=== PATIENT | female | born 1950 | race Hispanic/Latino ===

== ENCOUNTER 2023-04-01 09:50 | Inpatient (IN) | payer MEDICARE, OTHER ==
[~2023-04-01 09:50] MED LIST: Iopamidol-370 76% 500 ML MDV (1 ML CHARGE) ONE
[2023-04-01 10:27] LABS: INR-International Normal Ratio 2.1; Prothrombin Time 24.6 sec (12.0-14.7)
[2023-04-01 10:28] LABS: PTT 90.9 sec (22.9-36.1)
[2023-04-01] MEDS ORDERED: Tenecteplase 50 MG ONE (10:34)
[2023-04-01 10:42] LABS: #Basophils 0.1 thou/uL (0.0-0.2); #Eosinphils 0.3 thou/uL (0.0-0.7); #Neutrophils 3.8 thou/uL (1.40-6.50); %Basophils 1.4 % (0.0-1.0); %Lymphocytes 31.5 % (21.0-51.0); %Monocytes 12.8 % (0.0-10.0); Hematocrit 42.2 % (36.0-47.0); Hemoglobin 13.1 g/dL (12.0-16.0); Mean Corpuscular Hemoglobin 24.5 pg (27.0-31.0); Platelet Count 241 10x3/uL (130-400); RBC Distribution Width 23.3 % (11.5-14.5); Red Blood Cell (RBC) Count 5.34 mill/uL (4.20-5.40); White Blood Cell (WBC) Count 7.7 10x3/uL (4.8-10.8)
[2023-04-01 11:04] LABS: Amphetamine Not Detected (NotDetected); Barbiturates Screen Not Detected (NotDetected); Benzodiazepine Screen Not Detected (NotDetected); Cocaine Metabolite Screen Not Detected (NotDetected); Methadone Not Detected (NotDetected); Methamphetamine Not Detected (NotDetected); Opiate Screen Not Detected (NotDetected); Oxycodone Screen Not Detected (NotDetected); Phencyclidine (PCP) Not Detected (NotDetected); THC/Cannabinoid Screen Not Detected (NotDetected); Tricyclic Screen Detected (NotDetected)
[2023-04-01 11:05] LABS: Bacteria/HPF None Seen HPF (None Seen); Bilirubin Negative (Negative); Blood, Urine Negative (Negative); CAUTI Indications for Culture Alt mental st,lethar; Clarity Clear (Clear); Glucose, Urine (Dipstick) Normal (Negative); Ketone, Urine Negative (Negative); Leukocyte Negative Leu/uL (Negative); Nitrite Negative (Negative); Protein, Urine (Dipstick) 200 mg/dL (Neg-Trace); RBC/HPF 0-3 HPF (0-3); Specific Gravity, Urine 1.031 (1.002-1.036); Squamous Epithelial 0-3 HPF (0-3)
[2023-04-01 11:10] LABS: Troponin I 0.042 ng/mL (< 0.028)
[2023-04-01 11:11] LABS: Acetaminophen Less than 10 mcg/mL (10.0-30.0); Alcohol Less than 10.0 mg/dL (Less than 10); Salicylate Less than 8.0 mg/dL (15.0-30.0)
[2023-04-01 11:16] LABS: Urine Culture Reflex No No
[2023-04-01 11:19] LABS: Anisocytosis MODERATE=16-30 cells HPF (0-5); Burr Cells SLIGHT = 2-5 cells HPF (0-1); CellaVision Operator ID LAB.CMB; Elliptocytes SLIGHT = 2-5 cells HPF (0-1); Macrocytosis SLIGHT = 6-15 cells HPF (0-5); Microcytosis SLIGHT = 6-15 cells HPF (0-5); Platelet Adequacy Comment Platelets Normal; Polychromasia SLIGHT = 2-3 cells HPF (0-2); RBC Morphology 2
[2023-04-01 11:37] LABS: Actual Bicarbonate (HCO3v) 27.2 mEq/L (22-28); Base Excess 2.8 mEq/L (-2.0 to +3.0); Calcium, Ionized (venous) 1.05 mmol/L (1.16-1.32); Chloride (VBG) 99 mmol/L (98-106); Hematocrit-VBG 43 % (36.0-47.0); Hemoglobin (Hb) 14.7 g/dL (11.7-16.1); Sodium 138 mmol/L (133-146); pH (venous) 7.437 (7.32-7.43)
[2023-04-01 11:38] LABS: Potassium (VBG) 6.41 mmol/L (3.70-5.30)
[2023-04-01 12:04] LABS: ALT (SGPT) 21 U/L (8-55); AST (SGOT) 54 U/L (5-34); Albumin 3.3 g/dL (3.4-4.8); Alkaline Phosphatase 216 U/L (40-110); BUN (Urea Nitrogen) 16 mg/dL (9.8-20.1); Bilirubin, Total 1.4 mg/dL (0.2-1.2); Calc. Creatinine Clearance 0 mL/min (70-130); Calcium 9.2 mg/dL (7.8-10.44); Carbon Dioxide 26 mmol/L (23-31); Chloride 101 mmol/L (98-107); Estimated GFR 71; Globulin 3.9 g/dL (2.4-3.5); Glucose 111 mg/dL (83-110); Potassium 5.4 mmol/L (3.5-5.1); Protein, Total 7.2 g/dL (5.8-8.1); Sodium 136 mmol/L (136-145)
[2023-04-01] MEDS ORDERED: Ondansetron PF 4 MG/2 ML Vial IVP PRN (12:37)
[2023-04-01] MEDS ORDERED: Communication Order-Pharmacy FS SCH (12:37)
[2023-04-01] MEDS ORDERED: niCARdipine 25 MG in Sodium Chloride 0.9% 250 ML 250 ML IVPB PRN (12:37)
[2023-04-01] MEDS ORDERED: Acetaminophen 325 MG TAB PO PRN (12:37)
[2023-04-01] MEDS ORDERED: hydrALAZINE 20 MG/ML VIAL SLOW IVP PRN (12:37)
[2023-04-01] MEDS ORDERED: Labetalol HCl 100 MG/20 ML VIAL SLOW IVP PRN (12:37)
[2023-04-01 12:41] LABS: Anion Gap 14 mmol/L (10-20)
[2023-04-01] MEDS ORDERED: Dextrose 50% Abboject 50 ML SYRINGE SLOW IVP PRN (12:51)
[2023-04-01] MEDS ORDERED: Dextrose 5% in Water 1,000 ML IV PRN (12:51)
[2023-04-01] MEDS ORDERED: Glucagon 1 MG/ML KIT IM PRN (12:51)
[2023-04-01 13:31] VITALS: BMI 34.2
[2023-04-01] MEDS ORDERED: FLU VACC QS2023(65UP)/MF59C/PF 60 MCG/0.5 ML SYRINGE IM ONE (14:15)
[2023-04-01] MEDS: Sodium Chloride 0.9% 1,000 ML IV SCH ×2 (18:14→23:59)
[2023-04-01] MEDS ORDERED: Famotidine 20 MG TAB PO SCH (21:00)
[2023-04-01] MEDS ORDERED: Atorvastatin Calcium 40 MG TAB PO SCH (21:00)
[2023-04-01] MEDS ORDERED: levETIRAcetam 500 mg/5 ml Oral Solution PO SCH (21:00)
[2023-04-01] MEDS: lamoTRIgine 100 MG TAB PO SCH (21:29)
[2023-04-01] MEDS: DULoxetine 60 MG CAP PO SCH (21:29)
[2023-04-01] MEDS: Atorvastatin Calcium 40 MG TAB PO SCH (21:29)
[2023-04-01] MEDS: levETIRAcetam 500 MG/5 ML VIAL SLOW IVP SCH (21:29)
[2023-04-01] MEDS: Acetaminophen/Codeine 30-300mg Tablet PO PRN (23:58)
[2023-04-02] MEDS: Levothyroxine 150 MCG TAB PO SCH (05:29)
[2023-04-02] MEDS: levETIRAcetam 500 MG/5 ML VIAL SLOW IVP SCH (08:32)
[2023-04-02] MEDS: DULoxetine 30 MG CAP PO SCH (08:33)
[2023-04-02] MEDS: Pregabalin 50 MG CAP PO SCH ×2 (08:33→22:00)
[2023-04-02] MEDS: lamoTRIgine 100 MG TAB PO SCH ×2 (08:33→21:55)
[2023-04-02] MEDS: Empagliflozin 10 MG TAB PO SCH (08:33)
[2023-04-02] MEDS: Sodium Chloride 0.9% 1,000 ML IV SCH (08:34)
[2023-04-02 11:39] LABS: #Basophils 0.1 thou/uL (0.0-0.2); #Eosinphils 0.3 thou/uL (0.0-0.7); #Monocytes 0.9 thou/uL (0.11-0.59); #Neutrophils 5.1 thou/uL (1.40-6.50); %Basophils 1.2 % (0.0-1.0); %Eosinophils 3.6 % (0.0-10.0); %Lymphocytes 27.7 % (21.0-51.0); %Monocytes 9.6 % (0.0-10.0); %Neutrophils 57.4 % (42.0-75.0); Hematocrit 46.7 % (36.0-47.0); Mean Corpuscular Hemoglobin 24.4 pg (27.0-31.0); Mean Corpuscular Volume 81.5 fl (78.0-98.0); Mean Platelet Volume 11.6 fL (7.4-10.4); Platelet Count 253 10x3/uL (130-400); RBC Distribution Width 23.9 % (11.5-14.5); Red Blood Cell (RBC) Count 5.73 mill/uL (4.20-5.40); White Blood Cell (WBC) Count 8.9 10x3/uL (4.8-10.8)
[2023-04-02 12:11] LABS: ALT (SGPT) 21 U/L (8-55); AST (SGOT) 54 U/L (5-34); Albumin 3.3 g/dL (3.4-4.8); Alkaline Phosphatase 231 U/L (40-110); Anion Gap 18 mmol/L (10-20); BUN (Urea Nitrogen) 20 mg/dL (9.8-20.1); Bilirubin, Total 1.2 mg/dL (0.2-1.2); Calc. Creatinine Clearance 91 mL/min (70-130); Calcium 8.8 mg/dL (7.8-10.44); Carbon Dioxide 23 mmol/L (23-31); Chloride 103 mmol/L (98-107); Estimated GFR 72; Globulin 3.7 g/dL (2.4-3.5); Glucose 85 mg/dL (83-110); Potassium 4.9 mmol/L (3.5-5.1); Sodium 139 mmol/L (136-145)
[2023-04-02] MEDS ORDERED: Furosemide 20 MG/2 ML VIAL SLOW IVP SCH (12:30)
[2023-04-02 12:50] LABS: INR-International Normal Ratio 1.9; Prothrombin Time 22.7 sec (12.0-14.7)
[2023-04-02] MEDS: Acetaminophen/Codeine 30-300mg Tablet PO PRN (16:22)
[2023-04-02] MEDS: DULoxetine 60 MG CAP PO SCH (19:57)
[2023-04-02] MEDS: levETIRAcetam 500 MG TAB PO SCH (21:54)
[2023-04-02] MEDS: Atorvastatin Calcium 40 MG TAB PO SCH (21:55)
[2023-04-02] MEDS: Sacubitril 24MG/Valsartan 26 MG TAB PO SCH (21:55)
[2023-04-02] MEDS: HumaLOG 300 UNITS/3 ML VIAL SC PRN (22:26)
[2023-04-02] MEDS: diphenhydrAMINE 25 MG CAP PO PRN (23:24)
[2023-04-03] MEDS: HumaLOG 300 UNITS/3 ML VIAL SC PRN ×3 (01:24→16:43)
[2023-04-03] MEDS: Levothyroxine 150 MCG TAB PO SCH (05:40)
[2023-04-03 07:46] LABS: Troponin I 0.024 ng/mL (< 0.028)
[2023-04-03] MEDS: Acetaminophen/Codeine 30-300mg Tablet PO PRN (08:31)
[2023-04-03 09:15] LABS: Cardiac Risk 3.3 (Less than 4.5)
[2023-04-03] MEDS: levETIRAcetam 500 MG TAB PO SCH ×2 (09:18→20:58)
[2023-04-03] MEDS: Aspirin 81 mg Enteric Coated Tablet PO SCH (09:19)
[2023-04-03] MEDS: Fish Oil 1,000 MG CAP PO SCH (09:19)
[2023-04-03] MEDS: Empagliflozin 10 MG TAB PO SCH (09:19)
[2023-04-03] MEDS: Sacubitril 24MG/Valsartan 26 MG TAB PO SCH ×2 (09:19→20:59)
[2023-04-03] MEDS: lamoTRIgine 100 MG TAB PO SCH ×2 (09:26→20:58)
[2023-04-03] MEDS: DULoxetine 30 MG CAP PO SCH (09:26)
[2023-04-03] MEDS: Pregabalin 50 MG CAP PO SCH ×2 (11:28→20:58)
[2023-04-03 15:33] VITALS: BP 120/85
[2023-04-03] MEDS: Atorvastatin Calcium 40 MG TAB PO SCH (20:58)
[2023-04-03] MEDS: DULoxetine 60 MG CAP PO SCH (20:59)
[2023-04-03] MEDS: Apixaban 5 MG TAB PO SCH (20:59)
[2023-04-04] MEDS: Acetaminophen/Codeine 30-300mg Tablet PO PRN (04:20)
[2023-04-04] MEDS: Levothyroxine 150 MCG TAB PO SCH (05:12)
[2023-04-04] MEDS: diphenhydrAMINE 25 MG CAP PO PRN (05:12)
[2023-04-04] MEDS: Fish Oil 1,000 MG CAP PO SCH (08:30)
[2023-04-04] MEDS: Empagliflozin 10 MG TAB PO SCH (08:30)
[2023-04-04] MEDS: Aspirin 81 mg Enteric Coated Tablet PO SCH (08:30)
[2023-04-04] MEDS: Sacubitril 24MG/Valsartan 26 MG TAB PO SCH ×2 (08:30→20:26)
[2023-04-04] MEDS: levETIRAcetam 500 MG TAB PO SCH ×2 (08:30→20:25)
[2023-04-04] MEDS: Apixaban 5 MG TAB PO SCH ×2 (08:30→21:16)
[2023-04-04] MEDS: DULoxetine 30 MG CAP PO SCH (08:31)
[2023-04-04] MEDS: lamoTRIgine 100 MG TAB PO SCH ×2 (08:31→20:26)
[2023-04-04] MEDS: Pregabalin 50 MG CAP PO SCH ×2 (09:34→21:17)
[2023-04-04] MEDS: HumaLOG 300 UNITS/3 ML VIAL SC PRN ×2 (11:24→16:38)
[2023-04-04] MEDS: Atorvastatin Calcium 40 MG TAB PO SCH (20:24)
[2023-04-04] MEDS: DULoxetine 60 MG CAP PO SCH (20:26)
[2023-04-04 20:37] VITALS: TEMP 97.7
== END 2023-04-04 20:55 | DRG 62 ==
LOC: ERS 09:50 → CCU 12:12
PROVIDERS: ADMIT Internal Medicine; ATTEND Internal Medicine Critical Care Medicine
DX: I67.89 Other cerebrovascular disease (principal); G81.94 Hemiplegia, unspecified affecting left nondominant side; I48.20 Chronic atrial fibrillation, unspecified; I50.22 Chronic systolic (congestive) heart failure; J96.11 Chronic respiratory failure with hypoxia; I42.9 Cardiomyopathy, unspecified; I25.810 Atherosclerosis of coronary artery bypass graft(s) without angina pectoris; E87.5 Hyperkalemia; R29.710 NIHSS score 10; I11.0 Hypertensive heart disease with heart failure; I48.0 Paroxysmal atrial fibrillation; I65.22 Occlusion and stenosis of left carotid artery; G40.909 Epilepsy, unspecified, not intractable, without status epilepticus; R47.81 Slurred speech; E11.65 Type 2 diabetes mellitus with hyperglycemia; R29.810 Facial weakness; E03.9 Hypothyroidism, unspecified; R29.6 Repeated falls; E78.5 Hyperlipidemia, unspecified; S42.302D Unspecified fracture of shaft of humerus, left arm, subsequent encounter for fracture with routine healing; Z95.1 Presence of aortocoronary bypass graft; Z79.899 Other long term (current) drug therapy; Z79.4 Long term (current) use of insulin; Z85.038 Personal history of other malignant neoplasm of large intestine; Z85.3 Personal history of malignant neoplasm of breast; Z91.81 History of falling; Z99.81 Dependence on supplemental oxygen; Z90.10 Acquired absence of unspecified breast and nipple; Z90.49 Acquired absence of other specified parts of digestive tract; Z79.01 Long term (current) use of anticoagulants; Z91.148 Patient's other noncompliance with medication regimen for other reason; T45.1X5S Adverse effect of antineoplastic and immunosuppressive drugs, sequela; G62.9 Polyneuropathy, unspecified; Z92.3 Personal history of irradiation; Z92.21 Personal history of antineoplastic chemotherapy
CPT/HCPCS: 36415; 36416; 51702; 70450; 70496; 70498; 70551; 71045; 80053; 80061; 80306; 80307; 81001; 82805; 84484; 85025; 85610; 85730; 87086; 93005; 93306; 93880; 94760; 96361; 96374; 99292; J1815; J1940; J1953; J3101; J7050; Q9967

== ENCOUNTER 2023-05-13 03:50 | Inpatient (IN) | payer MEDICARE, OTHER ==
[2023-05-13] MEDS ORDERED: Calcium Chloride 1 GM/10 ML Abboject SYRINGE ONE ×2 (03:52→08:53)
[2023-05-13] MEDS ORDERED: Sodium Bicarb 50 MEQ/50 ML Abboject 8.4% SYRINGE ONE (03:52)
[2023-05-13] MEDS ORDERED: Amiodarone 150 MG/3 ML VIAL ONE (03:52)
[2023-05-13] MEDS ORDERED: EPINEPHrine 1 MG/10 ML Abboject SYRINGE ONE (03:52)
[2023-05-13] MEDS ORDERED: fentaNYL 50 mcg/mL 1 mL Vial ONE (04:28)
[2023-05-13 04:30] LABS: Actual Bicarbonate (HCO3a) 17.2 mEq/L (22-28); Analyzer IN Cardio ER; CO2 Tension 41.9 mmHg (35.0-45.0); Calcium, Ionized (arterial) 1.36 mmol/L (1.12-1.30); Carboxyhemoglobin (COHb) 1.3 gm% (0.0-3.0); Hematocrit-ABG 45 % (36.0-47.0); Hemoglobin (Hb) 15.3 g/dL (12.0-16.0); O2 Tension (PaO2), arterial 202.5 mmHg (> 70.0); Potassium - ABG Lab 4.13 mmol/L (3.70-5.30)
[2023-05-13 04:30] LABS: Hematocrit 50.2 % (36.0-47.0); Hemoglobin 14.9 g/dL (12.0-16.0); Manual Diff?? YES; Mean Corpuscular HGB CONC 29.7 g/dL (32.0-36.0); Mean Corpuscular Hemoglobin 24.9 pg (27.0-31.0); Mean Corpuscular Volume 83.8 fl (78.0-98.0); Platelet Count 214 10x3/uL (130-400); RBC Distribution Width 25.3 % (11.5-14.5); Red Blood Cell (RBC) Count 5.99 mill/uL (4.20-5.40); White Blood Cell (WBC) Count 27.7 10x3/uL (4.8-10.8)
[2023-05-13 04:31] LABS: INR-International Normal Ratio 2.3
[2023-05-13 04:32] LABS: PTT 47.3 sec (22.9-36.1)
[2023-05-13 04:33] LABS: Delete Auto Diff?? YES
[2023-05-13 04:39] LABS: Puncture Site RR
[2023-05-13 04:40] LABS: ALV-art Gradient 458.125 mmHg (0-20)
[2023-05-13 04:42] LABS: Troponin I 0.077 ng/mL (< 0.028)
[2023-05-13] MEDS ORDERED: Fentanyl CADD 100 ML IV SCH (04:45)
[2023-05-13 04:57] LABS: Anisocytosis SLIGHT = 6-15 cells HPF (0-5); Band 3 % (5-11); CellaVision Operator ID lab.abc; Eosinophils 1 % (0-10); Hypochromia SLIGHT = 6-15 cells HPF (0-5); Lymphocytes 51 % (21-51); Monocytes 5 % (0-10); Myelocyte 1 % (0-0); Neutrophil 24 % (42-75); Nucleated RBC (Manual Ct) 1 % (0); Platelet Adequacy Comment Platelets Normal; Polychromasia SLIGHT = 2-3 cells HPF (0-2); Reactive Lymphocytes 15 % (0-10); Target Cells SLIGHT = 2-5 cells HPF (0-1); Total Cell Count 100
[2023-05-13 05:01] LABS: ALT (SGPT) 291 U/L (8-55); AST (SGOT) 775 U/L (5-34); Alkaline Phosphatase 357 U/L (40-110); Anion Gap 29 mmol/L (10-20); BUN (Urea Nitrogen) 22 mg/dL (9.8-20.1); Bilirubin, Total 1.7 mg/dL (0.2-1.2); Calc. Creatinine Clearance 0 mL/min (70-130); Carbon Dioxide 18 mmol/L (23-31); Chloride 103 mmol/L (98-107); Estimated GFR 33; Globulin 3.5 g/dL (2.4-3.5); Glucose 82 mg/dL (83-110); Lipase 38 U/L (8-78); Magnesium 3.7 mg/dL (1.6-2.6); Potassium 4.6 mmol/L (3.5-5.1); Protein, Total 6.5 g/dL (5.8-8.1); Sodium 145 mmol/L (136-145)
[2023-05-13] MEDS ORDERED: NOREPINEPHRINE 8 MG/250 ML-D5W 250 ML ONE (05:06)
[2023-05-13] MEDS ORDERED: Acetaminophen 650 MG/20.3 ML UDCUP PER TUBE PRN (05:53)
[2023-05-13] MEDS ORDERED: Sodium Chloride 0.9% 1,000 ML IV SCH (06:00)
[2023-05-13] MEDS ORDERED: Ondansetron ODT 4 MG TAB SL PRN (06:00)
[2023-05-13] MEDS ORDERED: Ondansetron PF 4 MG/2 ML Vial IVP PRN (06:00)
[2023-05-13] MEDS ORDERED: Sodium Chloride 0.9% 100 ML ONE (06:29)
[2023-05-13] MEDS ORDERED: Cefepime 2 GM VIAL ONE (06:29)
[2023-05-13] MEDS ORDERED: Vancomycin 1 GM/200 ML (FROZEN) BAG ONE (06:29)
[2023-05-13] MEDS ORDERED: Acetaminophen 325 MG TAB PO PRN (06:42)
[2023-05-13] MEDS ORDERED: Ventilator Sedation Protocol 1 EACH FS SCH (06:45)
[2023-05-13] MEDS ORDERED: Amiodarone 450 MG, Admixture Fee 1 EACH in Dextrose 5% in Water 250 ML IVPB SCH (07:00)
[2023-05-13] MEDS ORDERED: Lorazepam 2 MG/ML VIAL SLOW IVP PRN (07:00)
[2023-05-13] MEDS ORDERED: DISCONTINUE PREVIOUS NARCOTIC PAIN MEDICATIONS AND BENZODIAZEPINES FS SCH (07:00)
[2023-05-13] MEDS ORDERED: Fentanyl BOLUS 250 ML IVPB PRN (07:00)
[2023-05-13] MEDS ORDERED: Morphine 2 MG/ML VIAL SLOW IVP PRN (07:00)
[2023-05-13] MEDS ORDERED: Propofol BOLUS 1,000 MG/100 ML VIAL IV PRN (07:00)
[2023-05-13] MEDS ORDERED: Propofol 1,000 MG/100 ML VIAL IV PRN (07:00)
[2023-05-13] MEDS ORDERED: HumaLOG 300 UNITS/3 ML VIAL SC PRN (07:09)
[2023-05-13] MEDS ORDERED: Glucagon 1 MG/ML KIT IM PRN (07:09)
[2023-05-13] MEDS ORDERED: Dextrose 50% Abboject 50 ML SYRINGE SLOW IVP PRN (07:09)
[2023-05-13] MEDS ORDERED: Dextrose 5% in Water 1,000 ML IV PRN (07:09)
[2023-05-13 08:14] LABS: Base Excess (BEa) -12.4 mEq/L (-2.0 to +3.0); Calcium, Ionized (arterial) 1.24 mmol/L (1.12-1.30); Carboxyhemoglobin (COHb) 1.7 gm% (0.0-3.0); Hematocrit-ABG 46 % (36.0-47.0); Hemoglobin (Hb) 15.6 g/dL (12.0-16.0); O2 Tension (PaO2), arterial 151.4 mmHg (> 70.0); pH, Arterial 7.253 (7.35-7.45)
[2023-05-13 08:15] LABS: Actual Bicarbonate (HCO3a) 13.4 mEq/L (22-28); Potassium - ABG Lab 6.29 mmol/L (3.70-5.30); Puncture Site RRA
[2023-05-13] MEDS ORDERED: Sodium Bicarb 50 MEQ/50 ML Abboject 8.4% SYRINGE IVP SCH (08:30)
[2023-05-13] MEDS ORDERED: Calcium Chloride 1 GM/10 ML Abboject SYRINGE IVP SCH (08:45)
[2023-05-13] MEDS ORDERED: Vasopressin 20 UNITS, Admixture Fee 1 EACH in Sodium Chloride 0.9% 50 ML IV SCH (08:45)
[2023-05-13] MEDS ORDERED: Sodium Bicarb 50 mEq/50 ML VIAL ONE ×2 (08:53→09:01)
[2023-05-13] MEDS ORDERED: Enoxaparin 40 MG (0.4 mL) SYRINGE SC SCH (09:00)
[2023-05-13] MEDS ORDERED: Famotidine/PF 20 mg/2ml Vial SLOW IVP SCH (09:00)
[2023-05-13] MEDS ORDERED: Dextrose 50% Abboject 50 ML SYRINGE ONE (09:04)
[2023-05-13 10:08] LABS: ALT (SGPT) 407 U/L (8-55); AST (SGOT) 1185 U/L (5-34); Albumin 2.8 g/dL (3.4-4.8); Alkaline Phosphatase 390 U/L (40-110); Anion Gap 34 mmol/L (10-20); BUN (Urea Nitrogen) 29 mg/dL (9.8-20.1); Bilirubin, Total 2.2 mg/dL (0.2-1.2); Calc. Creatinine Clearance 0 mL/min (70-130); Calcium 11.2 mg/dL (7.8-10.44); Carbon Dioxide 15 mmol/L (23-31); Chloride 99 mmol/L (98-107); Estimated GFR 27; Globulin 3.3 g/dL (2.4-3.5); Glucose 202 mg/dL (83-110); Potassium 5.8 mmol/L (3.5-5.1); Protein, Total 6.1 g/dL (5.8-8.1); Sodium 142 mmol/L (136-145)
[2023-05-13] MEDS ORDERED: Dextrose 50% Abboject 50 ML SYRINGE SLOW IVP SCH ×2 (10:15→13:45)
[2023-05-13] MEDS ORDERED: Vasopressin 20 UNITS in Sodium Chloride 0.9% 50 ML IV PRN (10:23)
[2023-05-13] MEDS ORDERED: Electrolyte Replacement Protocol 1 EACH IVPB ONE (10:23)
[2023-05-13] MEDS ORDERED: Electrolyte Replacement Protocol FS PRN (10:30)
[2023-05-13] MEDS ORDERED: LOKELMA 10 GM PACKET PO SCH (10:30)
[2023-05-13] MEDS ORDERED: Pantoprazole 80 MG, Admixture Fee 1 EACH in Sodium Chloride 0.9% 100 ML IVPB SCH (11:00)
[2023-05-13] MEDS: NOREPINEPHRINE 8 MG/250 ML-D5W 250 ML IVPB PRN ×3 (11:11→23:36)
[2023-05-13 11:20] VITALS: BMI 32.8
[2023-05-13 11:47] LABS: Platelet Count 367 10x3/uL (130-400)
[2023-05-13 12:26] LABS: Fibrinogen 506 mg/dL (253-463)
[2023-05-13 12:28] LABS: PTT 48.7 sec (22.9-36.1)
[2023-05-13 12:43] LABS: D-Dimer Test Greater than 20.00 *mcg/mL (0.27-0.43)
[2023-05-13] MEDS ORDERED: Albumin 25% 25 GM (100 mL) BOT IVPB SCH (12:45)
[2023-05-13 12:57] LABS: INR-International Normal Ratio 2.7; Prothrombin Time 29.1 sec (12.0-14.7)
[2023-05-13 13:25] LABS: Base Excess (BEa) -14.8 mEq/L (-2.0 to +3.0); CO2 Tension 27.3 mmHg (35.0-45.0); Calcium, Ionized (arterial) 1.24 mmol/L (1.12-1.30); Carboxyhemoglobin (COHb) 1.2 gm% (0.0-3.0); Hematocrit-ABG 46 % (36.0-47.0); Hemoglobin (Hb) 15.7 g/dL (12.0-16.0); O2 Tension (PaO2), arterial 315.3 mmHg (> 70.0); pH, Arterial 7.227 (7.35-7.45)
[2023-05-13] MEDS ORDERED: Sodium Bicarb 50 mEq/50 ML VIAL IVP SCH (13:45)
[2023-05-13] MEDS ORDERED: Insulin Regular 300 UNITS/3 ML VIAL IVP SCH (13:45)
[2023-05-13 13:59] LABS: Actual Bicarbonate (HCO3a) 11.1 mEq/L (22-28); Potassium - ABG Lab 6.42 mmol/L (3.70-5.30)
[2023-05-13 14:00] LABS: ALV-art Gradient 363.575 mmHg (0-20); Puncture Site ALINE
[2023-05-13] MEDS ORDERED: Vancomycin (BATCH) 2 GM in Premix 1 BAG IVPB SCH (14:00)
[2023-05-13] MEDS: Ipratropium/Albuterol 3 ML NEB NEB SCH ×3 (14:23→23:33)
[2023-05-13] MEDS: Sodium Bicarbonate 150 MEQ in Dextrose 5% in Water 1,000 ML IVP SCH ×2 (14:25→22:53)
[2023-05-13 14:41] LABS: Critical Call Chem Troponin I NUR.LEW1 @1440; Critical Call Chem-Lactate NUR.LEW1 @1440; Lactic Acid 17.1 mmol/L (0.5-2.2)
[2023-05-13 15:30] LABS: Hematocrit 45.9 % (36.0-47.0); Hemoglobin 13.6 g/dL (12.0-16.0); Manual Diff?? YES; Mean Corpuscular HGB CONC 29.6 g/dL (32.0-36.0); Mean Corpuscular Hemoglobin 25.1 pg (27.0-31.0); Mean Corpuscular Volume 84.8 fl (78.0-98.0); Mean Platelet Volume 11.2 fL (7.4-10.4); RBC Distribution Width 24.1 % (11.5-14.5); Red Blood Cell (RBC) Count 5.41 mill/uL (4.20-5.40); White Blood Cell (WBC) Count 31.6 10x3/uL (4.8-10.8)
[2023-05-13 15:32] LABS: Delete Auto Diff?? YES; Platelet Count 351 10x3/uL (130-400)
[2023-05-13 15:55] LABS: Anion Gap 36 mmol/L (10-20); BUN (Urea Nitrogen) 35 mg/dL (9.8-20.1); Calc. Creatinine Clearance 32 mL/min (70-130); Calcium 9.5 mg/dL (7.8-10.44); Carbon Dioxide 12 mmol/L (23-31); Chloride 100 mmol/L (98-107); Estimated GFR 22; Glucose 250 mg/dL (83-110); Potassium 5.7 mmol/L (3.5-5.1); Sodium 142 mmol/L (136-145)
[2023-05-13 16:11] LABS: Anisocytosis MARKED = >30 cells HPF (0-5); Band 7 % (5-11); Burr Cells SLIGHT = 2-5 cells HPF (0-1); CellaVision Operator ID lab.sh2; Dohle Bodies SLIGHT; Hypochromia SLIGHT = 6-15 cells HPF (0-5); Large Platelets 21.9 % (0-5); Lymphocytes 3 % (21-51); Macrocytosis MODERATE=16-30 cells HPF (0-5); Monocytes 5 % (0-10); Neutrophil 86 % (42-75); Ovalocytes SLIGHT = 2-5 cells HPF (0-1); Platelet Adequacy Comment Platelets Normal; Poikilocytosis SLIGHT = 6-15 cells HPF (0-5); Polychromasia MODERATE = 3-4 cells HPF (0-2); Smudge Cells 6.7 %; Target Cells SLIGHT = 2-5 cells HPF (0-1); Total Cell Count 105; Vacuoles SLIGHT
[2023-05-13] MEDS: HumaLOG 300 UNITS/3 ML VIAL SC PRN ×2 (16:23→23:44)
[2023-05-13] MEDS ORDERED: Vancomycin (BATCH) 1.25 GM in Premix 1 BAG IVPB SCH (18:00)
[2023-05-13] MEDS: Cefepime 1 GM in Sodium Chloride 0.9% 100 ML IVPB SCH (18:27)
[2023-05-13 20:03] LABS: Critical Call Chem-Lactate REHAB.JMB @2003; Lactic Acid 14.7 mmol/L (0.5-2.2)
[2023-05-13] MEDS: Pantoprazole 40 MG VIAL IVP SCH (20:23)
[2023-05-13] MEDS: Acetaminophen 650 MG Suppository PR PRN (20:28)
[2023-05-14] MEDS: Amiodarone 450 MG, Admixture Fee 1 EACH in Dextrose 5% in Water 250 ML IVPB SCH ×2 (00:22→16:42)
[2023-05-14 00:25] LABS: Critical Call Chem-Lactate REHAB.JMB@0024; Lactic Acid 14.5 mmol/L (0.5-2.2)
[2023-05-14 04:19] LABS: Hematocrit 42.7 % (36.0-47.0); Hemoglobin 13.6 g/dL (12.0-16.0); Manual Diff?? YES; Mean Corpuscular HGB CONC 31.9 g/dL (32.0-36.0); Mean Corpuscular Hemoglobin 25.2 pg (27.0-31.0); Mean Platelet Volume 11.4 fL (7.4-10.4); Platelet Count 354 10x3/uL (130-400); RBC Distribution Width 23.1 % (11.5-14.5); White Blood Cell (WBC) Count 25.3 10x3/uL (4.8-10.8)
[2023-05-14] MEDS: Acetaminophen 650 MG Suppository PR PRN ×2 (04:33→12:07)
[2023-05-14 04:43] LABS: ALT (SGPT) 809 U/L (8-55); AST (SGOT) 2343 U/L (5-34); Albumin 3.3 g/dL (3.4-4.8); Alkaline Phosphatase 348 U/L (40-110); Anion Gap 31 mmol/L (10-20); BUN (Urea Nitrogen) 45 mg/dL (9.8-20.1); Bilirubin, Total 2.3 mg/dL (0.2-1.2); Calc. Creatinine Clearance 22 mL/min (70-130); Calcium 8.5 mg/dL (7.8-10.44); Carbon Dioxide 18 mmol/L (23-31); Chloride 92 mmol/L (98-107); Estimated GFR 14; Globulin 3.3 g/dL (2.4-3.5); Protein, Total 6.6 g/dL (5.8-8.1); Sodium 135 mmol/L (136-145)
[2023-05-14 04:45] LABS: Glucose 448 mg/dL (83-110); Potassium 6.2 mmol/L (3.5-5.1)
[2023-05-14] MEDS: Cefepime 1 GM in Sodium Chloride 0.9% 100 ML IVPB SCH ×2 (05:08→18:43)
[2023-05-14] MEDS ORDERED: Sodium Bicarb 50 mEq/50 ML VIAL IVP SCH (05:15)
[2023-05-14] MEDS ORDERED: Insulin Regular 300 UNITS/3 ML VIAL IVP SCH (05:15)
[2023-05-14] MEDS: HumaLOG 300 UNITS/3 ML VIAL SC PRN ×4 (05:27→17:43)
[2023-05-14 05:55] LABS: Delete Auto Diff?? YES
[2023-05-14 05:56] LABS: Mean Corpuscular Volume 79.1 fl (78.0-98.0)
[2023-05-14] MEDS ORDERED: Sodium Polystyrene Sulfonate 15 GM (60 mL) BOT PER TUBE SCH (06:35)
[2023-05-14] MEDS: Ipratropium/Albuterol 3 ML NEB NEB SCH ×2 (06:42→12:47)
[2023-05-14 07:03] LABS: Anisocytosis SLIGHT = 6-15 cells HPF (0-5); Band 9 % (5-11); Burr Cells SLIGHT = 2-5 cells HPF (0-1); CellaVision Operator ID LAB.JMM; Elliptocytes SLIGHT = 2-5 cells HPF (0-1); Large Platelets 12.9 % (0-5); Lymphocytes 6 % (21-51); Macrocytosis SLIGHT = 6-15 cells HPF (0-5); Metamyelocyte 1 % (0-0); Monocytes 19 % (0-10); Neutrophil 62 % (42-75); Platelet Adequacy Comment Platelets Normal; Polychromasia MODERATE = 3-4 cells HPF (0-2); Reactive Lymphocytes 3 % (0-10); Smudge Cells 17.8 %; Total Cell Count 101
[2023-05-14 07:20] LABS: Actual Bicarbonate (HCO3a) 23.8 mEq/L (22-28); Base Excess (BEa) 1.5 mEq/L (-2.0 to +3.0); CO2 Tension 30.9 mmHg (35.0-45.0); Calcium, Ionized (arterial) 0.99 mmol/L (1.12-1.30); Hematocrit-ABG 41 % (36.0-47.0); Hemoglobin (Hb) 13.8 g/dL (12.0-16.0); O2 Tension (PaO2), arterial 134.9 mmHg (> 70.0); pH, Arterial 7.505 (7.35-7.45)
[2023-05-14] MEDS ORDERED: Vancomycin Dose by Levels Sliding Scale (Wt 71-99) FS SCH (07:45)
[2023-05-14 07:48] LABS: ALV-art Gradient 432.525 mmHg (0-20)
[2023-05-14 08:05] LABS: Bilirubin Negative (Negative); Blood, Urine 3+ (Negative); Clarity Turbid (Clear); Glucose, Urine (Dipstick) Greater than 1000 mg/dL (Negative); Ketone, Urine Negative (Negative); Leukocyte 75 Leu/uL (Negative); Nitrite Negative (Negative); Protein, Urine (Dipstick) 100 mg/dL (Neg-Trace); RBC/HPF Greater than 50 HPF (0-3); Specific Gravity, Urine 1.014 (1.002-1.036); Urobilinogen Normal mg/dL (Less than 2); WBC/HPF Greater than 50 HPF (0-3)
[2023-05-14] MEDS: Sodium Bicarbonate 150 MEQ in Dextrose 5% in Water 1,000 ML IVP SCH (08:28)
[2023-05-14 08:33] LABS: Bacteria/HPF 1+ HPF (None Seen)
[2023-05-14 09:23] LABS: Anion Gap 29 mmol/L (10-20); BUN (Urea Nitrogen) 52 mg/dL (9.8-20.1); Calc. Creatinine Clearance 22 mL/min (70-130); Calcium 8.2 mg/dL (7.8-10.44); Carbon Dioxide 25 mmol/L (23-31); Chloride 89 mmol/L (98-107); Estimated GFR 13; Potassium 5.4 mmol/L (3.5-5.1); Sodium 138 mmol/L (136-145)
[2023-05-14] MEDS: Pantoprazole 40 MG VIAL IVP SCH ×2 (09:28→20:28)
[2023-05-14 09:29] LABS: Critical Call Chemistry NUR.CLW1@0930; Glucose 471 mg/dL (83-110); Lactic Acid 11.5 mmol/L (0.5-2.2)
[2023-05-14 10:15] VITALS: BP 113/48
[2023-05-14 10:39] LABS: Vancomycin, Random 28.1 ug/mL (See Comment)
[2023-05-14] MEDS: NOREPINEPHRINE 8 MG/250 ML-D5W 250 ML IVPB PRN (10:45)
[2023-05-14 20:09] VITALS: TEMP 102.4
[2023-05-14] MEDS ORDERED: DC Sedation Protocol FS SCH (21:32)
[2023-05-14] MEDS: Lorazepam 2 MG/ML VIAL SLOW IVP PRN ×2 (22:02→22:57)
[2023-05-14] MEDS: Morphine 2 MG/ML VIAL SLOW IVP PRN ×6 (22:02→23:12)
== END 2023-05-14 23:14 | disposition expired | DRG 296 ==
LOC: ERS 03:50 → CCU 05:45
PROVIDERS: ADMIT Student in an Organized Health Care Education/Training Program; ATTEND Hospitalist
PROC: 5A1221J Performance of Cardiac Output, Continuous, Automated (ICD-10-PCS; principal; 2023-05-13)
PROC: 5A1945Z Respiratory Ventilation, 24-96 Consecutive Hours (ICD-10-PCS; 2023-05-13)
PROC: 3E033XZ Introduction of Vasopressor into Peripheral Vein, Percutaneous Approach (ICD-10-PCS; 2023-05-13)
PROC: 5A19054 Respiratory Ventilation, Single, Nonmechanical (ICD-10-PCS; 2023-05-13)
PROC: 0BH17EZ Insertion of Endotracheal Airway into Trachea, Via Natural or Artificial Opening (ICD-10-PCS; 2023-05-13)
PROC: 5A2204Z Restoration of Cardiac Rhythm, Single (ICD-10-PCS; 2023-05-13)
PROC: 03HY32Z Insertion of Monitoring Device into Upper Artery, Percutaneous Approach (ICD-10-PCS; 2023-05-13)
PROC: 4A133B1 Monitoring of Arterial Pressure, Peripheral, Percutaneous Approach (ICD-10-PCS; 2023-05-13)
PROC: 4A133J1 Monitoring of Arterial Pulse, Peripheral, Percutaneous Approach (ICD-10-PCS; 2023-05-13)
PROC: 3E03329 Introduction of Other Anti-infective into Peripheral Vein, Percutaneous Approach (ICD-10-PCS; 2023-05-13)
DX: I46.9 Cardiac arrest, cause unspecified (principal); A41.9 Sepsis, unspecified organism; J96.21 Acute and chronic respiratory failure with hypoxia; I50.23 Acute on chronic systolic (congestive) heart failure; J69.0 Pneumonitis due to inhalation of food and vomit; D65 Disseminated intravascular coagulation [defibrination syndrome]; K29.71 Gastritis, unspecified, with bleeding; N17.0 Acute kidney failure with tubular necrosis; R65.20 Severe sepsis without septic shock; G93.41 Metabolic encephalopathy; K72.00 Acute and subacute hepatic failure without coma; E87.20 Acidosis, unspecified; N39.0 Urinary tract infection, site not specified; I49.01 Ventricular fibrillation; R68.0 Hypothermia, not associated with low environmental temperature; I25.10 Atherosclerotic heart disease of native coronary artery without angina pectoris; I11.0 Hypertensive heart disease with heart failure; E11.9 Type 2 diabetes mellitus without complications; Z51.5 Encounter for palliative care; Z66 Do not resuscitate; E78.5 Hyperlipidemia, unspecified; I48.91 Unspecified atrial fibrillation; R29.6 Repeated falls; R57.0 Cardiogenic shock; Z86.73 Personal history of transient ischemic attack (TIA), and cerebral infarction without residual deficits; E87.5 Hyperkalemia; E03.9 Hypothyroidism, unspecified; K21.9 Gastro-esophageal reflux disease without esophagitis; G40.909 Epilepsy, unspecified, not intractable, without status epilepticus; Z79.01 Long term (current) use of anticoagulants; Z99.81 Dependence on supplemental oxygen; Z79.82 Long term (current) use of aspirin; Z79.899 Other long term (current) drug therapy; Z79.84 Long term (current) use of oral hypoglycemic drugs; Z91.81 History of falling; Z95.1 Presence of aortocoronary bypass graft
CPT/HCPCS: 31500; 36416; 36556; 36600; 51702; 71045; 80053; 80202; 81001; 82533; 82550; 82805; 83605; 83690; 83735; 83880; 84484; 85025; 85049; 85300; 85362; 85379; 85384; 85610; 85730; 87040; 87149; 92950; 93005; 94002; 94003; 94640; 94760; 96365; 96366; 96368; 96374; 96375; C9113; J0171; J0282; J0283; J0692; J1815; J2060; J2272; J3010; J3370; J3370-JW; J3490; J7050; J7070; J7620; J7999; P9047; S0028